=== PATIENT | female | born 2000 | race Caucasian/White ===

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

== ENCOUNTER 2022-04-24 01:31 | Emergency (ER) | payer BC, SELFPAY ==
[2022-04-24 01:32] VITALS: BP 109/74; PULSE 82; RESP 16; TEMP 36.9; O2SAT 98; BMI 19.1
--- NOTE | 2022-04-24 01:47 | RAD_ITS ---
STUDY: X-RAY - ABDOMEN/PELVIS REASON FOR EXAM: Female, 21 years old. Cramping TECHNIQUE: Two AP supine views of the abdomen and pelvis. COMPARISON: None. FINDINGS: Normal visualized lung bases. There is a gassy appearance of the small bowel and large bowel. There is greater caliber of the large bowel and small bowel. There is no demonstrated free abdominal air. The visualized liver, spleen are grossly normal in size and morphology. The kidneys are obscured. Normal soft tissue structures. Normal visualized osseous structures. RAD/Abdomen Single View (Portable) IMPRESSION: Gassy appearance of large and small bowel. Consider mild ileus. Electronically Signed: Chelsea Mccall MD at 2:24 EDT ,
--- NOTE | 2022-04-24 01:48 | ED.VIS.GI ---
HPI HPI - GI History of Present Illness Chief Complaint: Abd Pain Narrative Narrative: 21-year-old female with abdominal cramping, nausea/vomiting, diarrhea, chills. She states she has felt somewhat unwell most of the day. Her cramping was worse later in the evening. She states that she took low-dose aspirin earlier which did not help. Now she is having nausea and vomiting and she does not have any antiemetics at home. She does not have a fever. She denies body aches. She has no sick contacts. She last ate a toaster cereal and chicken nuggets last evening. No urinary complaints. She states she is not concerned for and her last menstrual period is about a week ago. Denies any injury. PFSH PFSH Medical History no medical history Home Medications NK 04/24/22 [History Last Taken Unknown] Allergy/AdvReac Type Severity Reaction Status Date / Time No Known Allergies Allergy Verified 04/24/22 01:35 Surgical History no surgical history Social History Smoking Status: Never smoker ROS ROS ED Constitutional Constitutional ED: Denies chills or fever(s) ENT ENT ED: Denies rhinorrhea Cardiovascular Cardiovascular: Denies chest pain or palpitations Respiratory/Chest Respiratory/Chest: Denies cough or dyspnea Gastrointestinal Gastrointestinal: Reports abdominal pain, diarrhea, nausea and vomiting Genitourinary Genitourinary ED: Denies dysuria or hematuria Musculoskeletal Musculoskeletal: Denies arthralgias or back pain Integumentary Denies abscess Neurologic Neurologic: Denies headache(s) or paresthesias Psychiatric Psychiatric: Denies anxiety or depression Endocrine Endocrinology: Denies polydipsia or polyphagia EXAM Physical Exam Const Vital Signs: 04/24/22 01:32 Temperature 98.5 F Temperature Source Oral Pulse Rate 82 Respiratory Rate 16 Blood Pressure 109/74 Blood Pressure Mean 85 Pulse Ox 98 Oxygen Delivery Method Room Air General Appearance ED: NAD; Negative for pallor HEENT Reports moist mucous membranes normocephalic Eyes PERRL Resp normal respiratory effort and clear to auscultation bilaterally Cardio regular rate and regular rhythm GI GI Narrative: Generalized discomfort. No peritoneal signs. Abdomen soft. No guarding or rebound. No focal right lower quadrant pain or right upper quadrant pain. Back/Spine no CVA tenderness Neuro CN's II-XII intact bilaterally Sensorium / Orientation: alert, oriented to person, oriented to place and oriented to time Motor Exam: strength 5/5 throughout Psych mental status grossly normal Skin General Skin Exam: Negative for jaundice or pallor MDM MDM MDM Narrative Medical decision making narrative: Patient presenting with crampy diffuse abdominal pain. I did obtain a urinalysis and this is negative for infection. Negative hCG. Patient was treated with Naprosyn, Bentyl, Zofran. I did obtain a KUB which shows a lot of bowel gas but did not show any obstructive pattern on my interpretation. Radiologist does agree. Patient reevaluated at 3:30 AM and feels much better. I will discharge her home with a prescription for Bentyl and Zofran. I do not believe she needs lab work or further. Return precautions discussed. Impression: 1. Abdominal pain 2. Nausea/vomiting 3. Diarrhea Lab Data Attestation: I reviewed the patient's lab results. Labs: Laboratory Results - last 24 hr 04/24/22 02:25 Urine Color Yellow Urine Clarity Sl. Cloudy Urine pH 6.5 Ur Specific [place] 1.020 Urine Protein Negative Urine Glucose (UA) Normal Urine Ketones Negative Urine Occult Blood Negative Urine Nitrite Negative Urine Bilirubin Negative Urine Urobilinogen Normal Ur Leukocyte Esterase 25 H Urine RBC 0 SEEN Urine WBC 0-5 SEEN Ur Squamous Epith Cells 0-5 SEEN Amorphous Sediment 3+ Urine Bacteria 1+ Urine Mucus 0 SEEN Urine Test Negative Radiography Diagnostic Testing: Clinical Impression(s) from Imaging Studies KUB X-Ray 04/24/22 01:47 IMPRESSION: Gassy appearance of large and small bowel. Consider mild ileus. Electronically Signed: Chelsea Mccall MD at 2:24 EDT , Discharge Plan Triage Chief Complaint: Abd Pain ED Provider: Bashir Link Dx/Rx/DC Orders Prescriptions: No Action NK Primary Care Provider: Regan Suazo Referrals: Regan Suazo MD [Primary Care Provider] -
[2022-04-24] MEDS: Ondansetron ODT 4 MG Tablet PO (01:52)
[2022-04-24] MEDS: Naproxen 500 MG Tablet PO (02:05)
[2022-04-24] MEDS: Dicyclomine 10 MG Capsule 20 MG PO (02:05)
[2022-04-24 02:33] LABS: Mucous, Urine 0 SEEN /hpf (<or=2+); Red Blood Cells-Urine 0 SEEN /hpf (0-5)
[2022-04-24 02:34] LABS: Color, Urine Yellow (Yellow); Glucose, Dipstick Normal (Normal); Ketone-Dipstick Negative (Negative); Leukocyte Esterase-Dipstick 25 /ul (Negative); Nitrite-Dipstick Negative (Negative); Occult Blood-Urine Negative /ul (Negative); Protein-Dipstick Negative (Negative); Urine Bilirubin Dipstick Negative (Negative); Urine Clarity Sl. Cloudy (Clear); Urine Urobilinogen Normal (Normal); Urine pH 6.5 (5.0 - 8.0)
[2022-04-24 02:37] LABS: Internal QC Validated? YES +Cl - CLEAR BKGD; Pregnancy, Urine Negative Negative
[2022-04-24 02:40] LABS: Amorphous Sediment 3+; Bacteria 1+ /hpf (None Seen); Squamous Epithelial Cells - UA 0-5 SEEN /hpf (5-10); White Blood Cells 0-5 SEEN /hpf (0-5)
[2022-04-24 03:39] VITALS: PULSE 68; RESP 16; O2SAT 98
== END 2022-04-24 03:39 | disposition home or self-care (01) ==
PROVIDERS: Emergency Provider Student in an Organized Health Care Education/Training Program; PCP Pediatrics; Visit Provider Student in an Organized Health Care Education/Training Program
DX: R10.9 Unspecified abdominal pain (principal); R11.2 Nausea with vomiting, unspecified
CPT/HCPCS: 74018; 81001; 81025; 99283; A4216